=== PATIENT | female | born 1945 | race African-American/Black ===

== ENCOUNTER 2016-02-19 12:01 | Emergency (ER) | payer MEDICARE, OTHER ==
[~2016-02-19] VITALS: Ht 167.6 cm; Wt 75.0 kg
[~2016-02-19 12:01] MED LIST: PNEU13P IM; Z.0.NO CURRENT MEDS; ZOSTINJ SQ; [UNRECOGNIZED DRUG - CODE] TD
[2016-02-19 12:03] VITALS: BP 170/91; PULSE 124; RESP 14; TEMP 98.8; O2SAT 98
--- NOTE | 2016-02-19 18:24 | RADRPT ---
EXAM DATE/TIME: 02/19/2016 18:11 [facility] COMPARISON: No previous studies available for comparison. INDICATIONS : Fall one week ago. Continued nausea and dizziness. RADIATION DOSE: 33.94 CTDIvol (mGy) MEDICAL HISTORY : None SURGICAL HISTORY : Hysterectomy. ENCOUNTER: Initial ACUITY: 1 day PAIN SCALE: 5/10 LOCATION: cranial TECHNIQUE: Multiple contiguous axial images were obtained of the head. Using automated exposure control and adj ustment of the mA and/or kV according to patient size, radiation dose was kept as low as reasonably a chievable to obtain optimal diagnostic quality images. FINDINGS: CEREBRUM: The ventricles are normal for age. No evidence of midline shift, mass lesion, hemorrhage or acute in farction. No extra-axial fluid collections are seen. POSTERIOR FOSSA: The cerebellum and brainstem are intact. The 4th ventricle is midline. The cerebellopontine angle i s unremarkable. EXTRACRANIAL: The visualized portion of the orbits is intact. There is mild polypoid mucosal disease in the maxilla ry sinuses. SKULL: The calvaria is intact. No evidence of skull fracture. CONCLUSION: No acute intracranial injury Joel Gibson MD on February 19, 2016 at 18:21 Board Certified Radiologist. This report was verified electronically.
--- NOTE | 2016-02-19 18:28 | RADRPT ---
EXAM DATE/TIME: 02/19/2016 18:11 [facility] COMPARISON: No previous studies available for comparison. INDICATIONS : Fall one week ago. Neck pain and dizziness. RADIATION DOSE: 20.32 CTDIvol (mGy) MEDICAL HISTORY : None SURGICAL HISTORY : Hysterectomy. ENCOUNTER: Initial ACUITY: 1 week PAIN SCALE: 5/10 LOCATION: neck TECHNIQUE: Volumetric scanning of the cervical spine was performed. Multiplanar reconstructions in the sagittal, coronal and oblique axial planes were performed. Using automated exposure control and adjustment o f the mA and/or kV according to patient size, radiation dose was kept as low as reasonably achievable to obtain optimal diagnostic quality images. FINDINGS: There is slight focal reversal of normal cervical lordosis centered at C4-5 where severe disc disease is present. There is a nonacute inferior endplate Schmorl node type defect involving C4 and prominen t disc space narrowing and endplate osteophyte formation at this and the adjacent C5-6 level with les s severe degenerative changes elsewhere. There is no evidence of fracture. No bony canal or foraminal compromise is identified. There is no evidence of paraspinal hematoma. A greater than 4 cm low-densi ty mass involves the thyroid centrally and eccentric to the right. CONCLUSION: No acute bony injury in the cervical spine. Prominent degenerative changes in the mid cervical spine. Large low density thyroid mass should be followed up with elective ultrasound Joel Gibson MD on February 19, 2016 at 18:23 Board Certified Radiologist. This report was verified electronically.
--- NOTE | 2016-02-19 18:29 | RADRPT ---
EXAM DATE/TIME: 02/19/2016 18:11 [facility] COMPARISON: No previous studies available for comparison. INDICATIONS : Fall one week ago. Continued dizziness and pain. RADIATION DOSE: 36.42 CTDIvol (mGy) MEDICAL HISTORY : None SURGICAL HISTORY : Hysterectomy. ENCOUNTER: Initial ACUITY: 1 week PAIN SCORE: 5/10 LOCATION: Bilateral facial TECHNIQUE: Volumetric scanning of the facial bones was performed. Using automated exposure control and adjustme nt of the mA and/or kV according to patient size, radiation dose was kept as low as reasonably achiev able to obtain optimal diagnostic quality images. FINDINGS: ORBITS: The orbital and infraorbital osseous structures are intact. The retroconal structures have a normal configuration. No radiopaque foreign bodies are seen. NASAL BONE: The nasal bone and maxillary spine are intact ZYGOMATIC ARCHES: Symmetric without evidence of fracture. SINUSES: There is moderate polypoid mucosal disease in the maxillary sinuses bilaterally, left worse than righ t. No acute or destructive changes. NASAL CAVITY: The nasal septum is intact and midline. The lacrimal ducts are intact. SOFT TISSUES: No radiopaque foreign bodies seen. No soft-tissue swelling is seen. INTRACRANIAL: No intracranial air seen. CRIBIFORM PLATE: Grossly intact. CONCLUSION: No evidence of facial fracture Joel Gibson MD on February 19, 2016 at 18:27 Board Certified Radiologist. This report was verified electronically.
--- NOTE | 2016-02-19 18:41 | PD ---
HPI Chief Complaint: Head Injury Time Seen by Provider: 17:36 Travel History International Travel<30 days: No Contact w/Intl Traveler<30days: No Traveled to known affect area: No History of Present Illness HPI 70yo F with no significant PMD presents to the ED with c/o left sided periorbital pain s/p trip and fall on leaves 5 days ago. Denies any LOC, weakness or numbness. Pt states she had some dizziness and nausea since last night and just want to make sure everything was ok. Denies any fever, cough, chest pain, sob, n/v, abdominal pain, urinary complaints. PFSH Past Medical History Diminished Hearing: No Immunizations Current: No Influenza Vaccination: No Past Surgical History Hysterectomy: Yes Social History Alcohol Use: Yes (1 GLASS OF WINE A week) Tobacco Use: No Substance Use: No Allergies-Medications (Allergen,Severity, Reaction): Coded Allergies: No Known Allergies (Verified , 02/19/16) Reported Meds & Prescriptions Reported Meds & Active Scripts Active Acetaminophen 325 Mg Tab 325 Mg PO Q4-6H PRN Prevnar 13 (Pneumoccal 13-Valent Conj Vacc) 0.5 Ml Inj 0.5 Ml IM ONCE Zostavax Vaccine (Zoster Vaccine Live) 0.65 Ml Inj 0.65 Ml SQ ONCE Diflorasone Diacetate 0.05 % Cre 0.05 % TD TID Reported No Current Meds (Miscellaneous Medication) Misc Review of Systems Except as stated in HPI: all other systems reviewed are Neg Physical Exam Narrative GENERAL: 70yo F not in distress. SKIN: Warm and dry. HEAD: Atraumatic. Normocephalic. EYES: Pupils equal and round. EOMI. No scleral icterus. No injection or drainage. ENT: No nasal bleeding or discharge. Mucous membranes pink and moist. No drainage from bilateral ears. NECK:No midline cervical spine ttp. FROM cervical spine. CARDIOVASCULAR: Regular rate and rhythm. No murmur appreciated. RESPIRATORY: No accessory muscle use. Clear to auscultation. Breath sounds equal bilaterally. GASTROINTESTINAL: Abdomen soft, non-tender, nondistended. Hepatic and splenic margins not palpable. MUSCULOSKELETAL: No obvious deformities. No clubbing. No cyanosis. No edema. NEUROLOGICAL: Awake and alert. No obvious cranial nerve deficits. Motor grossly within normal limits. Normal speech. PSYCHIATRIC: Appropriate mood and affect; insight and judgment normal. Data Data Last Documented VS Vital Signs Date Time Temp Pulse Resp B/P Pulse Ox O2 Delivery O2 Flow Rate FiO2 02/19/16 19:04 85 14 143/77 98 Room Air 02/19/16 12:[address] Brain W/O Iv Contrast(Rout) (02/19/16 17:49) Ct Cerv Spine W/O Contrast (02/19/16 17:49) Ct Facial Bones W/O Iv Cont (02/19/16 17:49) Complete Blood Count With Diff (02/19/16 17:49) Comprehensive Metabolic Panel (02/19/16 17:49) Prothrombin Time / Inr (Pt) (02/19/16 17:49) Act Partial Throm Time (Ptt) (02/19/16 17:49) Urinalysis - C+S If Indicated (02/19/16 17:49) Iv Access Insert/Monitor (02/19/16 17:49) Electrocardiogram (02/19/16 ) Ondansetron Inj (Zofran Inj) (02/19/16 18:45) Acetaminophen (Tylenol) (02/19/16 18:45) Labs Laboratory Tests Test 02/19/16 02/19/16 18:45 19:39 White Blood Count 4.7 TH/MM3 Red Blood Count 4.31 MIL/MM3 Hemoglobin 12.7 GM/DL Hematocrit 38.7 % Mean Corpuscular Volume 89.9 FL Mean Corpuscular Hemoglobin 29.6 PG Mean Corpuscular Hemoglobin 32.9 % Concent Red Cell Distribution Width 14.7 % Platelet Count 190 TH/MM3 Mean Platelet Volume 8.9 FL Neutrophils (%) (Auto) 61.5 % Lymphocytes (%) (Auto) 18.0 % Monocytes (%) (Auto) 19.3 % Eosinophils (%) (Auto) 0.4 % Basophils (%) (Auto) 0.8 % Neutrophils # (Auto) 2.9 TH/MM3 Lymphocytes # (Auto) 0.8 TH/MM3 Monocytes # (Auto) 0.9 TH/MM3 Eosinophils # (Auto) 0.0 TH/MM3 Basophils # (Auto) 0.0 TH/MM3 CBC Comment DIFF FINAL Differential Comment Prothrombin Time 11.3 SEC Prothromb Time International 1.0 RATIO Ratio Activated Partial 29.2 SEC Thromboplast Time Sodium Level 139 MEQ/L Potassium Level 3.6 MEQ/L Chloride Level 105 MEQ/L Carbon Dioxide Level 27.7 MEQ/L Anion Gap 6 MEQ/L Blood Urea Nitrogen 12 MG/DL Creatinine 0.95 MG/DL Estimat Glomerular Filtration 70 ML/MIN Rate Random Glucose 91 MG/DL Calcium Level 8.8 MG/DL Total Bilirubin 0.4 MG/DL Aspartate Amino Transf 20 U/L (AST/SGOT) Alanine Aminotransferase 22 U/L (ALT/SGPT) Alkaline Phosphatase 81 U/L Total Protein 8.1 GM/DL Albumin 3.8 GM/DL Urine Color YELLOW Urine Turbidity HAZY Urine pH 5.0 Urine Specific [place] 1.020 Urine Protein TRACE mg/dL Urine Glucose (UA) NEG mg/dL Urine Ketones NEG mg/dL Urine Occult Blood LARGE Urine Nitrite NEG Urine Bilirubin NEG Urine Urobilinogen LESS THAN 2.0 MG/DL Urine Leukocyte Esterase SMALL Urine RBC 11 /hpf Urine WBC 5 /hpf Urine Squamous Epithelial 5 /hpf Cells Urine Mucus FEW /lpf Microscopic Urinalysis Comment CULT NOT INDICATED MDM Medical Decision Making Medical Screen Exam Complete: Yes Emergency Medical Condition: Yes Interpretation(s) Laboratory Tests Test 02/19/16 18:45 White Blood Count 4.7 TH/MM3 (4.0-11.0) Red Blood Count 4.31 MIL/MM3 (4.00-5.30) Hemoglobin 12.7 GM/DL (11.6-15.3) Hematocrit 38.7 % (35.0-46.0) Mean Corpuscular Volume 89.9 FL (80.0-100.0) Mean Corpuscular Hemoglobin 29.6 PG (27.0-34.0) Mean Corpuscular Hemoglobin 32.9 % Concent (32.0-36.0) Red Cell Distribution Width 14.7 % (11.6-17.2) Platelet Count 190 TH/MM3 (150-450) Mean Platelet Volume 8.9 FL (7.0-11.0) Neutrophils (%) (Auto) 61.5 % (16.0-70.0) Lymphocytes (%) (Auto) 18.0 % (9.0-44.0) Monocytes (%) (Auto) 19.3 % (0.0-8.0) Eosinophils (%) (Auto) 0.4 % (0.0-4.0) Basophils (%) (Auto) 0.8 % (0.0-2.0) Neutrophils # (Auto) 2.9 TH/MM3 (1.8-7.7) Lymphocytes # (Auto) 0.8 TH/MM3 (1.0-4.8) Monocytes # (Auto) 0.9 TH/MM3 (0-0.9) Eosinophils # (Auto) 0.0 TH/MM3 (0-0.4) Basophils # (Auto) 0.0 TH/MM3 (0-0.2) CBC Comment DIFF FINAL Differential Comment Prothrombin Time 11.3 SEC (9.8-11.6) Prothromb Time International 1.0 RATIO Ratio Activated Partial 29.2 SEC Thromboplast Time (24.3-30.1) Sodium Level 139 MEQ/L (136-145) Potassium Level 3.6 MEQ/L (3.5-5.1) Chloride Level 105 MEQ/L (98-107) Carbon Dioxide Level 27.7 MEQ/L (21.0-32.0) Anion Gap 6 MEQ/L (5-15) Blood Urea Nitrogen 12 MG/DL (7-18) Creatinine 0.95 MG/DL (0.50-1.00) Estimat Glomerular Filtration 70 ML/MIN (>89) Rate Random Glucose 91 MG/DL (74-106) Calcium Level 8.8 MG/DL (8.5-10.1) Total Bilirubin 0.4 MG/DL (0.2-1.0) Aspartate Amino Transf 20 U/L (15-37) (AST/SGOT) Alanine Aminotransferase 22 U/L (10-53) (ALT/SGPT) Alkaline Phosphatase 81 U/L (45-117) Total Protein 8.1 GM/DL (6.4-8.2) Albumin 3.8 GM/DL (3.4-5.0) EKG: NSR 72bpm. Normal axis. TWI III. QTc 393ms. Differential Diagnosis Contusion vs. ICH vs. electrolyte abnormality vs. facial fracture Narrative Course 70yo with mild nausea and dizziness since last night. Pt had fall from standing 5 days ago and has bony ttp on left maxilla and left periorbital region so will obtain CT brain and facial bones. CT brain showed no ICH. CT cervical spine showed no fracture. There is large low density thyroid mass and recommended outpatient ultrasound of thyroid to further evaluate. Informed pt of this and she understands. CT facial showed no fracture. Pt feels better after acetaminophen, zofran. Denies any more nausea or lightheadedness. Labs reviewed, no leukocytosis. Normal creatinine. No electrolyte abnormality. UA showed blood but WBC is only 5. No abdominal complaints, urinary complaints or back pain. Will have pt follow up PMD regarding that. Return precautions given. VS stable. Diagnosis Primary Impression: Head trauma Qualified Code: S09.90XA - Head trauma, initial encounter Patient Instructions: General Instructions Departure Forms: Tests/Procedures Additional Instructions: Please follow up with your PMD in 3-7 days. You had incidental finding on CT cervical spine of large low density thyroid mass that should be followed up with elective ultrasound. Please follow up with your PMD regarding this. Return to the ED if symptoms worsen. Med/Other Pt SpecificInfo: Prescription(s) given Scripts Acetaminophen 325 Mg Cey012 Mg PO Q4-6H PRN (PAIN SCALE 1 TO 4) #20 TAB Ref 0 Prov:Mone Clark DO 02/19/16 Disposition: 01 DISCHARGE HOME Condition: Stable Mone Clark DO Feb 19, 2016 18:41
[2016-02-19] MEDS ORDERED: ONDANSETRON HCL 4 MG/2 ML VIAL IV PUSH ONE (18:45)
[2016-02-19] MEDS ORDERED: ACETAMINOPHEN 500 MG CPLT PO ONE (18:45)
[2016-02-19 19:04] VITALS: BP 143/77; PULSE 85; RESP 14; O2SAT 98
[2016-02-19 19:26] LABS: AUTOMATED NEUTROPHIL # 2.9 TH/MM3 (1.8-7.7); BASOPHIL % 0.8 % (0.0-2.0); EOSINOPHIL % 0.4 % (0.0-4.0); HEMATOCRIT 38.7 % (35.0-46.0); HEMO FLAGS DIFF FINAL; LYMPHOCYTE # 0.8 TH/MM3 (1.0-4.8); MEAN CELL VOLUME 89.9 FL (80.0-100.0); MEAN CORPUSCULAR HEMOGLOBIN 29.6 PG (27.0-34.0); MEAN CORPUSCULAR HGB CONC 32.9 % (32.0-36.0); MONO % 19.3 % (0.0-8.0); NEUT % 61.5 % (16.0-70.0); PLATELET COUNT 190 TH/MM3 (150-450); RED BLOOD COUNT 4.31 MIL/MM3 (4.00-5.30); RED CELL DISTRIBUTION WIDTH 14.7 % (11.6-17.2); WHITE BLOOD COUNT 4.7 TH/MM3 (4.0-11.0)
[2016-02-19 19:37] LABS: APTT (PATIENT) 29.2 SEC (24.3-30.1); PROTHROMBIN TIME - PATIENT 11.3 SEC (9.8-11.6)
[2016-02-19 19:50] LABS: ANION GAP 6 MEQ/L (5-15); AST (GOT) 20 U/L (15-37); BICARBONATE 27.7 MEQ/L (21.0-32.0); BLOOD UREA NITROGEN 12 MG/DL (7-18); CHLORIDE 105 MEQ/L (98-107); GLOMERULAR FILTRATION RATE 70 ML/MIN (>89); POTASSIUM 3.6 MEQ/L (3.5-5.1); SODIUM (NA) 139 MEQ/L (136-145)
[2016-02-19 19:53] LABS: ALKALINE PHOSPHATASE 81 U/L (45-117); ALT (GPT) 22 U/L (10-53); TOTAL BILIRUBIN ADULT 0.4 MG/DL (0.2-1.0)
[2016-02-19] MEDS ORDERED: ACET325T PO (20:01)
[2016-02-19 20:13] LABS: BLOOD, URINE LARGE (NEG); COMMENT (UR) CULT NOT INDICATED; CULTURE IF INDICATED CULT NOT INDICATED; GLUCOSE,URINE NEG (NEG); KETONE, URINE NEG (NEG); MUCUS URINE FEW /lpf (OCC); NITRITE,URINE NEG (NEG); SQUAMOUS EPITHELIAL CELL URINE 5 /hpf (0-5); URINE COLOR YELLOW (YELLW/STRAW)
--- NOTE | 2016-02-20 11:37 | EKG ---
Date Performed: 02/19/2016 Time Performed: 19:41:38 PTAGE: 70 years EKG: Sinus rhythm POSSIBLE LEFT ATRIAL ENLARGEMENT BORDERLINE ECG NO PREVIOUS TRACING DOCTOR: Xavi Richards Interpretating Date/Time 02/20/2016 11:36:08
== END 2016-02-19 21:06 | disposition home or self-care (01) ==
LOC: NEPA 12:01
DX: S09.90XA Unspecified injury of head, initial encounter (principal); R11.0 Nausea; R42 Dizziness and giddiness; W01.0XXA Fall on same level from slipping, tripping and stumbling without subsequent striking against object, initial encounter
CPT/HCPCS: 70450; 70486; 72125; 80053; 81001; 85025; 85610; 85730; 93005; 96374; 99284; J2405